=== PATIENT | female | born 1950 | race Caucasian/White ===

== ENCOUNTER 2016-12-24 09:55 | Emergency (ER) | payer BC ==
--- NOTE | ~2016-12-24 | CR181 ---
[facility] A Service of [facility] & [facility] RADIOLOGY TEXT RESULTS PATIENT: MIKY GARCIA LOCATION: [facility] : 50 UNIT #: [id number] AGE: [address]: Grace Martinez SEX: F ORDER DR: [id number] [facility] [address] [place], [place] [address] [id number] MR#: [id number] Acc #: [id number] NAME: MIKY GARCIA : 1950 SEX: F STUDY DATE/TIME: 12/24/2016 11:24 UNIT: [facility] ROOM: STUDY DESCRIPTION: CR Lumbar Spine 2 or 3 Views Attending Physician: Grace Martinez P.A.-C. Ordering Physician: Grace Martinez P.A.-C. Primary Care Physician: Callie Christiansen M.D. MEDICAL IMAGING REPORT This report is preliminary unless electronic signature is present EXAM Lumbar spine, 3 views COMPARISON None. INDICATION 66-year-old female with low back pain radiating into the right attic and leg. History of prior L4-L5 discectomy. Symptoms have been ongoing for 5 days. FINDINGS There is lumbar dextroscoliosis. Calcium density in the right abdomen may represent a nonobstructive renal calculus. There are other calcium densities in the left upper quadrant of the abdomen which may be within the spleen, perhaps reflecting calcified granulomas. Mild disc height loss at L3-L4 and L5-S1. Degenerative facet disease is likely present, L3-L4 through L5-S1. No evidence of acute fracture or subluxation of the lumbar spine. IMPRESSION 1. No acute fracture or subluxation of the lumbar spine. 2. Mild dextroscoliosis. 3. Degenerative facet disease is suspected from L3-L4 through L5-S1. Disc height loss L3-L4 and L5-S1. Dictated by... Jose Burgess M.D. THIS IS AN ELECTRONICALLY VERIFIED REPORT Jose Burgess M.D. at 01/01/2017 7:54 AM BLM/aa [facility] A Service of [facility] & [facility] RADIOLOGY TEXT RESULTS PATIENT: MIKY GARCIA LOCATION: [facility] #: [id number] : 50 UNIT #: [id number] AGE: [address]: Grace Martinez SEX: F ORDER DR: TD: 12/24/2016 12:49 JOB #: [id number] MEDICAL IMAGING REPORT Page 1 of 1 COPY
[2016-12-24 10:31] LABS: URINE SOURCE CLEAN CATCH
[2016-12-24 10:38] LABS: URINE APPEARANCE CLEAR; URINE BILIRUBIN NEG (NEG); URINE BLOOD NEG (NEG); URINE COLOR DK YELLOW; URINE GLUCOSE NEG (NEG); URINE KETONE TRACE (NEG); URINE LEUKOCYTE ESTERASE 1+ (NEG); URINE NITRATE NEG (NEG); URINE PH 5.5 (5-8); URINE PROTEIN TRACE (NEG); URINE SPECIFIC GRAVITY 1.033 (1.003-1.035)
[2016-12-24 10:41] LABS: CULTURE INDICATED? YES; URINE BACTERIA AUWI NEG (NEGATIVE); URINE SQUAMOUS EPITHELIAL CELL OCC /[HPF]; UWBCS1 AUWI 25-50 (0-5)
== END 2016-12-24 12:33 | disposition home or self-care (01) ==
LOC: CED 09:55
DX: M51.16 Intervertebral disc disorders with radiculopathy, lumbar region (principal); I10 Essential (primary) hypertension; F41.9 Anxiety disorder, unspecified; Z90.49 Acquired absence of other specified parts of digestive tract; Z98.890 Other specified postprocedural states; Z87.891 Personal history of nicotine dependence; Z88.0 Allergy status to penicillin
CPT/HCPCS: 72100; 81003; 87086; 96372; 99283; J1885